=== PATIENT | female | born 1995 | race Caucasian/White ===

== ENCOUNTER 2020-05-17 20:19 | Outpatient (CLI) | payer BC | END 2020-05-17 20:20 | disposition home or self-care (01) | LOC: COV 20:19 | PROVIDERS: ATTEND Family Medicine | DX: M79.10 Myalgia, unspecified site (principal); R53.83 Other fatigue; J02.9 Acute pharyngitis, unspecified; R19.7 Diarrhea, unspecified; Z20.828 Contact with and (suspected) exposure to other viral communicable diseases ==

== ENCOUNTER 2022-07-18 00:21 | Emergency (ER) | payer BC, OTHER ==
[2022-07-18 00:35] VITALS: BP 142/91
--- NOTE | 2022-07-18 00:45 | ED Physician Documentation ---
History of Present Illness - Stated complaint Stated Complaint: HEART FLUTTER - Chief complaint Chief Complaint: Cardiac - History obtained from History obtained from: Patient - Additonal information Additional information: 27-year-old female, previously healthy, presents with heart palpitations intermittent over the past few hours lasting a few seconds at a time. Patient states she has had palpitations here in the emergency department while on the lpn private duty.Denies other symptoms.Does state that she drinks energy drinks and had a lot of caffeine today. Review of Systems Ten Systems: 10 systems reviewed and negative Constitutional: denies: Fever, Chills Cardiac: reports: Palpitations. denies: Chest pain / pressure Respiratory: denies: Dyspnea PD ED PE NORMAL - General General: Alert and oriented X 3, No acute distress, Well developed/nourished - HEENT HEENT: Atraumatic, PERRL, EOMI, Moist mucous membranes - Neck Neck: Supple, no meningeal sign - Cardiac Cardiac: RRR - Respiratory Respiratory: No respiratory distress, Clear bilaterally - Abdomen Abdomen: Non tender, Non distended - Derm Derm: Normal color, Warm and dry - Extremities Extremities: No deformity - Neuro Neuro: Alert and oriented X 3, No motor deficit, No sensory deficit - Psych Psych: Normal mood, Normal affect Results - Vitals Vitals: Vital Signs - 24 hr 07/18/ 00:32 Temperature 36.7 C Heart Rate 80 Respiratory 18 Rate Blood Pressure 142/91 H O2 Saturation 100 Oxygen O2 Source Room air - EKG (time done) 0030 Rate: Rate (enter#) (79) Rhythm: NSR [place]: Normal Intervals: Normal IN QRS: Normal Ischemia: Normal ST segments PD MEDICAL DECISION MAKING - ED course ED course: 27yF presents for eval of palpitations. She expericined palpitations while on lpn private duty here in the ED and heart rhtyhm on [place] was NSR. EKG normal. exam benign. d/w patient. return precautions given Departure - Departure Disposition: 01 Home, Self Care Clinical Impression: Encounter for medical screening examination Condition: Good Instructions: ED Palpitations Comments: You were seen in the emergency department for heart palpitations. Your EKG and cardiac monitoring was normal. Please follow-up with your primary care provider and return to the emergency department if you have other concerns.
== END 2022-07-18 00:50 | disposition home or self-care (01) ==
LOC: ED 00:21
DX: Z13.89 Encounter for screening for other disorder (principal)
CPT/HCPCS: 93005; 99282; 99283

== ENCOUNTER 2024-03-17 08:00 | Outpatient (CLI) | payer OTHER ==
[2024-03-17 17:51] LABS: BASOPHILS % (AUTO) 0.8 %; EOSINOPHILS # (AUTO) 0.1 10^3/uL (0.0-0.7); EOSINOPHILS % (AUTO) 1.9 %; HCT - HEMATOCRIT 39.1 % (37.0-47.0); HGB - HEMOGLOBIN 12.6 g/dL (12.0-16.0); LYMPHOCYTES # (AUTO) 2.1 10^3/uL (1.5-3.5); LYMPHOCYTES % (AUTO) 39.7 %; MEAN CORPUSCULAR HEMOGLOBIN 27.4 pg (27.0-31.0); MEAN CORPUSCULAR HGB CONC 32.2 g/dL (32.0-36.0); MEAN PLATELET VOLUME 10.2 fL (7.9-10.8); MONOCYTES # (AUTO) 0.3 10^3/uL (0.0-1.0); NEUTROPHILS # (AUTO) 2.7 10^3/uL (1.5-6.6); NEUTROPHILS % (AUTO) 51.4 %; PLT - PLATELET COUNT 391 10^3/uL (130-450); RED CELL DISTRIBUTION WIDTH 13.5 % (12.0-15.0); WHITE BLOOD COUNT 5.2 x10^3/uL (4.8-10.8)
== END 2024-03-17 23:59 | disposition home or self-care (01) ==
LOC: LAB.N 08:00
PROVIDERS: ATTEND Family Medicine
DX: K62.5 Hemorrhage of anus and rectum (principal)
CPT/HCPCS: 36415; 85025